=== PATIENT | male | born 1950 | race Caucasian/White ===

== ENCOUNTER 2018-12-15 12:51 | Outpatient (CLI) | payer OTHER | END 2018-12-15 13:02 | disposition home or self-care (01) | LOC: RAD 12:51 | DX: M17.11 Unilateral primary osteoarthritis, right knee (principal); M17.12 Unilateral primary osteoarthritis, left knee; R07.89 Other chest pain; Z01.818 Encounter for other preprocedural examination ==

== ENCOUNTER 2018-12-15 13:11 | Inpatient (IN) | payer OTHER ==
[~2018-12-15] VITALS: Ht 182.9 cm; Wt 117.9 kg
[2019-01-02] MEDS ORDERED: COZAAR100 MG PO (08:30)
[2019-01-02] MEDS ORDERED: ADULT ASPIRIN81 MG PO (08:30)
[2019-01-02] MEDS ORDERED: GLIPIZIDE XL5 MG PO (08:31)
[2019-01-02] MEDS ORDERED: DILTIAZEM 24HR180 MG PO (08:31)
[2019-01-02] MEDS ORDERED: ATORVASTATIN CA10 MG PO (08:31)
[2019-01-02] MEDS ORDERED: LEVOTHYROXINE50 MCG PO (08:32)
[2019-01-02] MEDS ORDERED: DICLOFENAC POTA50 MG PO (08:32)
== END 2019-01-12 17:18 | DRG 470 ==
LOC: SURH 01-10 07:00 → O/R 01-10 09:58 → SURH 01-10 10:15
PROVIDERS: ADMIT Orthopaedic Surgery
PROC: 0SRC0J9 Replacement of Right Knee Joint with Synthetic Substitute, Cemented, Open Approach (ICD-10-PCS; principal; 2019-01-10 07:00)
DX: M17.11 Unilateral primary osteoarthritis, right knee (principal); D62 Acute posthemorrhagic anemia; E11.9 Type 2 diabetes mellitus without complications; I10 Essential (primary) hypertension; E03.8 Other specified hypothyroidism

== ENCOUNTER → 2019-01-06 | Outpatient (CLI) | payer OTHER ==
[~2019-01-06] MED LIST: ADULT ASPIRIN81 MG PO; ATORVASTATIN CA10 MG PO; COZAAR100 MG PO; DICLOFENAC POTA50 MG PO; DILTIAZEM 24HR180 MG PO; GLIPIZIDE XL5 MG PO; LEVOTHYROXINE50 MCG PO
== END | disposition home or self-care (01) ==
LOC: NUCLEAR 07:00
DX: R07.89 Other chest pain (principal); I11.9 Hypertensive heart disease without heart failure
CPT/HCPCS: 78452; 93017; A9500; J0153